=== PATIENT | male | born 1990 | race Caucasian/White ===

== ENCOUNTER 2017-05-28 09:19 | Emergency (ER) | payer OTHER ==
[~2017-05-28] VITALS: Ht 172.7 cm; Wt 76.7 kg
[~2017-05-28 09:19] MED LIST: KEFLEX500 MG PO; NORFLEX100 MG PO
[2017-05-28 09:20] VITALS: BP 130/87
[2017-05-28] MEDS ORDERED: FLUOXETINE HCL40 MG PO (09:28)
[2017-05-28] MEDS ORDERED: XANAX1 MG PO (09:28)
[2017-05-28] MEDS ORDERED: IBUPROFEN 600600 M1 PO (10:09)
== END 2017-05-28 10:22 | disposition home or self-care (01) ==
LOC: ER 09:19
DX: M54.5 Low back pain (principal); F41.9 Anxiety disorder, unspecified; F42.9 Obsessive-compulsive disorder, unspecified; F17.210 Nicotine dependence, cigarettes, uncomplicated; F10.99 Alcohol use, unspecified with unspecified alcohol-induced disorder; Z88.8 Allergy status to other drugs, medicaments and biological substances; W08.XXXA Fall from other furniture, initial encounter; Y93.89 Activity, other specified; Y92.69 Other specified industrial and construction area as the place of occurrence of the external cause; Y99.8 Other external cause status

== ENCOUNTER 2017-08-16 19:08 | Emergency (ER) | payer OTHER ==
[~2017-08-16] VITALS: Ht 172.7 cm; Wt 74.8 kg
[~2017-08-16 19:08] MED LIST changes: +FLUOXETINE HCL40 MG PO; +IBUPROFEN 600600 M1 PO; +XANAX1 MG PO
[2017-08-16 19:36] VITALS: BP 141/95
[2017-08-16] MEDS ORDERED: MAGIC MOUTHWASH SWISH&SPIT (20:11)
[2017-08-16] MEDS ORDERED: KEFLEX500 MG PO (20:11)
[2017-08-16] MEDS ORDERED: IBUPROFEN 600600 M1 PO (20:11)
== END 2017-08-16 20:15 | disposition home or self-care (01) ==
LOC: ER 19:08
DX: R68.84 Jaw pain (principal); F41.9 Anxiety disorder, unspecified; F42.9 Obsessive-compulsive disorder, unspecified; F17.210 Nicotine dependence, cigarettes, uncomplicated; F10.99 Alcohol use, unspecified with unspecified alcohol-induced disorder; Z88.8 Allergy status to other drugs, medicaments and biological substances

== ENCOUNTER 2018-12-01 23:00 | Emergency (ER) | payer OTHER ==
[~2018-12-01] VITALS: Ht 172.7 cm; Wt 70.3 kg
[~2018-12-01 23:00] MED LIST changes: +MAGIC MOUTHWASH SWISH&SPIT
[2018-12-02] MEDS ORDERED: SALINE MIST44 ML NASAL (01:03)
[2018-12-02 01:13] VITALS: BP 140/79
== END 2018-12-02 01:15 | disposition home or self-care (01) ==
LOC: ER 23:00
DX: S02.2XXA Fracture of nasal bones, initial encounter for closed fracture (principal); M25.561 Pain in right knee; F17.210 Nicotine dependence, cigarettes, uncomplicated; F41.9 Anxiety disorder, unspecified; F42.9 Obsessive-compulsive disorder, unspecified; Z88.8 Allergy status to other drugs, medicaments and biological substances; V49.40XA Driver injured in collision with unspecified motor vehicles in traffic accident, initial encounter; Y93.89 Activity, other specified; Y92.89 Other specified places as the place of occurrence of the external cause; Y99.8 Other external cause status